=== PATIENT | female | born 1935 | race Caucasian/White ===

== ENCOUNTER → 2016-07-11 | Outpatient (CLI) | payer OTHER ==
[~2016-07-11] MED LIST: ASCO500T16 PO; ASPI81TA28 PO; LYSI500C2 PO; MULTTAB PO; VITA100C2 PO; [UNRECOGNIZED DRUG - OTHER] PO
--- NOTE | 2016-07-11 17:12 | MAMMOGRAPHY REPORT ---
BILATERAL DIGITAL SCREENING MAMMOGRAM WITH CAD: 07/11/2016 CLINICAL HISTORY: Routine screening. Patient has no complaints. TECHNIQUE: Bilateral CC and MLO views were obtained. Current study was also evaluated with a Comput er Aided Detection (CAD) system. COMPARISON: Comparison is made to exams dated: 07/08/2015 mammogram, 07/06/2013 mammogram, 07/07/2014 steff mogram, 07/09/2013 mammogram, 06/23/2012 ultrasound biopsy, and 05/29/2010 ultrasound - [facility]. BREAST COMPOSITION: There are scattered areas of fibroglandular density in both breasts. FINDINGS: There is a stable ribbon shaped metallic biopsy marker in the lower inner anterior right b reast. No suspicious mass, architectural distortion or cluster of microcalcifications is seen. IMPRESSION: ACR BI-RADS CATEGORY 1: NEGATIVE There is no mammographic evidence of malignancy. A 1 year screening mammogram is recommended. The p atient will receive written notification of the results. Approximately 10% of breast cancers are not detected with mammography. A negative mammographic repor t should not delay biopsy if a clinically suggestive mass is present. Angela Gunn M.D. ay/:07/11/2016 16:43:27 Client Server Programmer: Eusebio ALMONTE(Thang)(Dawna), [facility] letter sent: Normal 1/2 BI-RADS Code: ACR BI-RADS Category 1: Negative
== END | disposition home or self-care (01) ==
LOC: C.MAMM 15:46
PROVIDERS: ATTEND Obstetrics & Gynecology
DX: Z12.31 Encounter for screening mammogram for malignant neoplasm of breast (principal)

== ENCOUNTER → 2017-08-22 | Outpatient (CLI) | payer OTHER ==
--- NOTE | 2017-08-26 12:42 | MAMMOGRAPHY REPORT ---
BILATERAL DIGITAL SCREENING MAMMOGRAM TOMOSYNTHESIS WITH CAD: 08/22/2017 TECHNIQUE: Breast tomosynthesis in addition to standard 2D mammography was performed. Current study was also evaluated with a Computer Aided Detection (CAD) system. COMPARISON: Comparison is made to exams dated: 07/11/2016 mammogram, 07/08/2015 mammogram, 07/07/2014 mamm ogram, 07/09/2013 mammogram, 07/06/2013 mammogram, and 06/23/2012 ultrasound biopsy - [facility]. BREAST COMPOSITION: There are scattered areas of fibroglandular density in both breasts. FINDINGS: No suspicious masses, calcifications, or areas of architectural distortion are noted in ei ther breast. There has been no significant interval change compared to prior exams. A biopsy clip is again noted within the right lower inner quadrant. Asymmetry within the right superior breast on th e MLO view is stable compared to multiple prior exams including the 2007 exam. IMPRESSION: ACR BI-RADS CATEGORY 2: BENIGN There is no mammographic evidence of malignancy. A 1 year screening mammogram is recommended. The pa tient will receive written notification of the results. Approximately 10% of breast cancers are not detected with mammography. A negative mammographic report should not delay biopsy if a clinically suggestive mass is present. Rose Mary Espinal M.D. /:08/22/2017 16:12:52 Clinical Neuropsychologist: Michelle ALMONTE(Thang)(Dawna), [facility] letter sent: Normal 1/2 BI-RADS Code: ACR BI-RADS Category 2: Benign
== END | disposition home or self-care (01) ==
LOC: C.MAMM 15:54
PROVIDERS: ATTEND Obstetrics & Gynecology
DX: Z12.31 Encounter for screening mammogram for malignant neoplasm of breast (principal)

== ENCOUNTER 2018-01-12 23:55 | Emergency (ER) | payer OTHER ==
[2018-01-13 00:05] VITALS: Ht 152.4 cm
[2018-01-13] MEDS ORDERED: FENTANYL CITRATE INJ 50 MCG/1 ML 2 ML VIAL IV STA (00:19)
[2018-01-13] MEDS ORDERED: ONDANSETRON INJ 2 MG/ML 2 ML VIAL IV STA (00:19)
--- NOTE | 2018-01-13 00:23 | EMERGENCY ROOM VISIT NOTE ---
History Report prepared by Tahmina: Jean Pope Under the Supervision of: Dr. Sammy Ennis M.D. First contact with patient: 00:11 Chief Complaint: HEAD INJURY (MINOR) Stated Complaint: HURT HEAD,BLEEDING,SHAKEY,FALL? History of Present Illness The patient is a 82 year old female who presents to the Emergency Room with complaints of a constant head laceration in her posterior scalp area that began 45 minutes ago. Patient states she does not remember what happened. She states she went to bed an hour and a half ago "feeling fine" and woke up with the back of her head bleeding. She states she has a headache, nausea, and shaking. Patient also has a left knee abrasion. Patient adds she takes a baby aspirin daily. She denies drinking, smoking, and any past medical history. Patient adds that she is still employed. Patient denies chest pain, neck pain, knee pain, abdominal pain, hip pain, back pain, SOB, and urinary/bowel symptoms. Source of History: patient, family (Daughter) Onset: 45 minutes ago Position: head Quality: other (Laceration) Timing: constant Modifying Factors (Relieving): other (None) Associated Symptoms: + LOC, + headache, + nausea, No neck pain, No chest pain, No SOB, No abdominal pain, No back pain, No urinary symptoms Note: Positive shaking. Review of Systems See HPI for pertinent positives & negatives. A total of 10 systems reviewed and were otherwise negative. Past Medical & Surgical Surgical Problems: (1) Hx of cataract removal with insertion of prosthetic lens Family History Omitted secondary to age. Social History Smoking Status: Never Smoker Housing Status: lives with family Occupation Status: employed Current/Historical Medications Scheduled Aspirin (Aspirin Ec), 81 MG PO DAILY Fish Oil ([place]-3), 1 CAP PO DAILY Multivitamins/Minerals (Mvi With Minerals), 1 TAB PO DAILY [Calcitrate Plus D], 1 TABLET PO DAILY Allergies Coded Allergies: Nitrofurantoin (Verified Allergy, Mild, nausea, 01/13/18) Sulfa Drugs (Verified Allergy, Unknown, UPSET STOMACH, 01/13/18) Physical Exam Vital Signs Date Time Temp Pulse Resp B/P (MAP) Pulse Ox O2 Delivery O2 Flow Rate FiO2 01/13/18 02:16 36.5 58 14 133/73 94 01/13/18 00:49 58 14 133/73 94 Room Air 01/13/18 00:05 36.5 61 16 168/82 97 Room Air Physical Exam GENERAL: Patient is uncomfortable appearing and in mild distress. HEAD: 2cm laceration with large hematoma over the posterior scalp. EYES: No scleral icterus, unremarkable pupils. ENT: Mucous membranes moist, no nasal congestion. NECK: No masses appreciated, no meningismus, trachea is midline. RESPIRATORY: No dyspnea. Clear to auscultation and equal bilaterally. No wheeze , no rhonchi. CARDIOVASCULAR: Regular rate and rhythm. No murmurs, rubs, gallops appreciated. GASTROINTESTINAL: Abdomen soft, nontender, no peritonitis. Bowel sounds positive. No masses appreciated. BACK: No midline tenderness, no CVA tenderness EXTREMITIES: Normal motion all extremities, no cyanosis, no edema. NEUROLOGIC: Alert and oriented, no acute motor or sensory deficits, no focal weakness, cranial nerves grossly intact. SKIN: No rash, no jaundice, no diaphoresis. Medical Decision & Procedures ER Provider Diagnostic Interpretation: X ray results are stated below per my interpretation: Chest: 1 view: No infiltrate, no effusion, normal cardiac border. Stat Rad Radiology results and stated below per my review and radiologist interpretation: CT HEAD: No acute hemorrhage, hydrocephalus, or mass effect. Chronic microvascular ischemic changes with cerebral volume loss. No acute fracture. Right parietal scalp laceration. Radiologist: Cherie Rucker MD CT C SPINE: FINDINGS: No fracture or subluxations are noted. The vertebral body heights and alignment are preserved. No prevertebral soft tissue swelling. Note is made of multilevel cervical spondylosis with varying degrees of central canal and foramina stenoses. IMPRESSION: 1. No cervical fractures. 2. Cervical spondylosis with varying degrees of central canal and foramina stenoses. Radiologist: Tommy Malik MD Laboratory Results 01/13/18 00:40 Red Blood Count 4.32, Mean Corpuscular Volume 98.4, Mean Corpuscular Hemoglobin 33.8, Mean Corpuscular Hemoglobin Concent 34.4, Mean Platelet Volume 9.8, Neutrophils (%) (Auto) 68.4, Lymphocytes (%) (Auto) 25.2, Monocytes (%) (Auto) 4.6, Eosinophils (%) (Auto) 1.2, Basophils (%) (Auto) 0.2, Neutrophils # (Auto) 5.51, Lymphocytes # (Auto) 2.03, Monocytes # (Auto) 0.37, Eosinophils # (Auto) 0.10, Basophils # (Auto) 0.02 01/13/18 00:40 Test 01/13/18 00:40 01/13/18 01:53 White Blood Count 8.06 K/uL (4.8-10.8) Red Blood Count 4.32 M/uL (4.2-5.4) Hemoglobin 14.6 g/dL (12.0-16.0) Hematocrit 42.5 % (37-47) Mean Corpuscular Volume 98.4 fL (80-100) Mean Corpuscular Hemoglobin 33.8 pg (25-34) Mean Corpuscular Hemoglobin Concent 34.4 g/dl (32-36) Platelet Count 188 K/uL (130-400) Mean Platelet Volume 9.8 fL (7.4-10.4) Neutrophils (%) (Auto) 68.4 % Lymphocytes (%) (Auto) 25.2 % Monocytes (%) (Auto) 4.6 % Eosinophils (%) (Auto) 1.2 % Basophils (%) (Auto) 0.2 % Neutrophils # (Auto) 5.51 K/uL (1.4-6.5) Lymphocytes # (Auto) 2.03 K/uL (1.2-3.4) Monocytes # (Auto) 0.37 K/uL (0.11-0.59) Eosinophils # (Auto) 0.10 K/uL (0-0.5) Basophils # (Auto) 0.02 K/uL (0-0.2) RDW Standard Deviation 44.9 fL (36.4-46.3) RDW Coefficient of Variation 12.3 % (11.5-14.5) Immature Granulocyte % (Auto) 0.4 % Immature Granulocyte # (Auto) 0.03 K/uL (0.00-0.02) Anion Gap 10.0 mmol/L (3-11) Estimated GFR () 94.2 Estimated GFR (Non- 81.3 BUN/Creatinine Ratio 18.3 (10-20) Calcium Level 8.3 mg/dl (8.5-10.1) Total Bilirubin 0.4 mg/dl (0.2-1) Aspartate Amino Transf (AST/SGOT) 19 U/L (15-37) Alanine Aminotransferase (ALT/SGPT) 28 U/L (12-78) Alkaline Phosphatase 89 U/L (45-117) Total Creatine Kinase 105 U/L (26-192) Troponin I < 0.015 ng/ml (0-0.045) Total Protein 7.1 gm/dl (6.4-8.2) Albumin 3.8 gm/dl (3.4-5.0) Globulin 3.3 gm/dl (2.5-4.0) Albumin/Globulin Ratio 1.2 (0.9-2) Bedside Troponin I < 0.030 ng/ml (0-0.045) Laboratory results as reviewed by me. Medications Administered Medications (Trade) Dose Ordered Sig/Orlin Route Start Time Stop Time Status Last Admin Dose Admin Fentanyl Citrate (Fentanyl Inj) 50 mcg NOW STAT IV 01/13/18 00:19 01/13/18 00:20 DC 01/13/18 00:45 50 MCG Ondansetron HCl (Zofran Inj) 4 mg NOW STAT IV 01/13/18 00:19 01/13/18 00:20 DC 01/13/18 00:45 4 MG Diphtheria/ Pertussis/Tetanus Vacc (Adacel Inj) 0.5 ml ONCE ONCE IM. 01/13/18 01:30 01/13/18 01:31 DC 01/13/18 01:29 0.5 ML Procedure Location: Posterior scalp Total length: 2cm Complexity: Simple Verbal consent was obtained after the risks and benefits were explained, including but not limited to bleeding, scarring, infection, pain, and bone/joint /nerve damage. At this time, the risks of the procedure are less than the risks of NOT performing the procedure. A time out was taken and the correct patient and site identified. The skin was prepped with betadine. The target area was anesthetized with 0 ml of 1% lidocaine without epinephrine. Copious irrigation was performed using saline and Betadine. The skin was re-prepped with betadine and a sterile field set. The wound was explored for foreign bodies and none found. Examination revealed no injury to deep structures such as tendons, bone, or significant blood vessels. Debridement was not performed. The wound edges were approximated using 4 galilea. Hemostasis and excellent approximation was achieved. Antibacterial ointment and a sterile dressing applied. Detailed wound care instructions and signs and symptoms of infection reviewed with the her. No complications and the patient tolerated the procedure well. ECG Per My Interpretation Indication: syncope Rate (beats per minute): 60 Rhythm: normal sinus Findings: no acute ischemic change, no ectopy, other (Lateral T-wave abnormalities) Comparison ECG Date: no prior available ED Course 0010: The patient was evaluated in room A2. A complete history and physical exam was performed. 0115: I reevaluated the patient. Patient states she has not had a tetanus shot in 10 years and is agreeable to getting one today. She adds her headache feels better. 0210: Reevaluated the patient. Discussed results and discharge instructions. She verbalized understanding and agreement. The patient is ready for discharge. Medical Decision Differential: MSK, Vaso-vagal, Intracerebral Event, Neurologic, Infectious, Volume Deficiency, Hypoglycemia, Electrolyte Abnormality, Cardiac Source, Toxicologic, amongst other pathologies entertained. 82 yr old female who awoke this evening with headache and noted injury to back of head. Unclear exactly what happened but she surmises she tripped when taking off pants and must have hit head on something before crawling in to bed. Unfortunately amnestic to what happened. Bruising to elbows and knees noted. Labs unremarkable. EKG with some likely chronic lateral T wave abnormalities. No cp, sob, nor other symptoms. CT head/neck negative for acute injury. CXR clear. Trop negative x 2. No symptoms nor evidence PE nor dissection. Suspect she hit head hard enough for significant concussion. She is well over several hours here. Lac repaired by me. She will have galilea out in 10-14 days. Post head injury instructions reviewed at length. Stressed PCP follow up. Reviewed symptoms requiring RTED. She and family comfortable with discharge and she will be checked in on at home. Head Trauma GCS Score: 15 Medication Reconcilliation Current Medication List: was personally reviewed by me Blood Pressure Screening Patient's blood pressure: Elevated blood pressure Blood pressure disposition: Elevated BP felt to be situational Impression Primary Impression: Concussion Additional Impressions: Closed head injury Scalp laceration Amnesia Xunwrnmmpe-rwdpeuq-guyveoblq (DTP) vaccination Cervical spondylosis Scribe Attestation The scribe's documentation has been prepared under my direction and personally reviewed by me in its entirety. I confirm that the note above accurately reflects all work, treatment, procedures, and medical decision making performed by me. Departure Information Dispostion Home / Self-Care Referrals Gurvinder Patel M.D. (PCP) Patient Instructions My [facility] Additional Instructions Rest and keep well hydrated over next few days. Use Tylenol as needed for headaches. Head injuries may cause delayed headaches, sleep problems, nausea and fatigue. Keep wound clean. You may shower and use shampoo. Call 911 or Return Immediately if worsening headache, fevers, swelling, vision changes, weakness, chest pain, shortness of breath or other concerning symptoms. You must follow up with your primary provider in the next few days for recheck. We are always here to help! Problem Qualifiers
[2018-01-13 00:50] LABS: BASO % 0.2 %; BASO ABS # 0.02 K/uL (0-0.2); EOS % 1.2 %; HEMATOCRIT 42.5 % (37-47); HEMOGLOBIN 14.6 g/dL (12.0-16.0); IG# 0.03 K/uL (0.00-0.02); LYMPH % 25.2 %; LYMPH ABS # 2.03 K/uL (1.2-3.4); MEAN CELL VOLUME 98.4 fL (80-100); MEAN CORPUSCULAR HEMOGLOBIN 33.8 pg (25-34); MEAN CORPUSCULAR HGB CONC 34.4 g/dl (32-36); MEAN PLATELET VOLUME 9.8 fL (7.4-10.4); MONO % 4.6 %; MONO ABS # 0.37 K/uL (0.11-0.59); NEUT % 68.4 %; NEUT ABS # 5.51 K/uL (1.4-6.5); PLATELET COUNT 188 K/uL (130-400); RED CELL DISTRIBUTION WIDTH CV 12.3 % (11.5-14.5); RED CELL DISTRIBUTION WIDTH SD 44.9 fL (36.4-46.3); WHITE BLOOD COUNT 8.06 K/uL (4.8-10.8)
[2018-01-13 01:17] LABS: ALBUMIN 3.8 gm/dl (3.4-5.0); ALKALINE PHOSPHATASE 89 U/L (45-117); ALT/SGPT 28 U/L (12-78); AST/SGOT 19 U/L (15-37); BLOOD UREA NITROGEN 13 mg/dl (7-18); CALCIUM 8.3 mg/dl (8.5-10.1); CARBON DIOXIDE 24 mmol/L (21-32); GLUCOSE 98 mg/dl (70-99); POTASSIUM 3.8 mmol/L (3.5-5.1); SODIUM 138 mmol/L (136-145); TOTAL PROTEIN 7.1 gm/dl (6.4-8.2)
[2018-01-13] MEDS ORDERED: DIPHTHERIA/TETANUS/PERTUSSIS 0.5 ML SYR/VIAL IM. ONE (01:30)
[2018-01-13] MEDS ORDERED: OMEG10007 PO (01:51)
[2018-01-13 02:16] VITALS: BP 133/73; PULSE 58; TEMP 36.5; O2SAT 94
--- NOTE | 2018-01-13 07:35 | DIAGNOSTIC IMAGING REPORT ---
CHEST ONE VIEW PORTABLE CLINICAL HISTORY: 82 years-old Female presenting with Syncope. TECHNIQUE: Portable upright AP view of the chest was obtained. COMPARISON: None. FINDINGS: Atherosclerosis of the aortic arch. Cardiac silhouette enlarged. No focal opacity. No large effusion or pneumothorax. Dextroscoliotic curvature of the thoracic spine. Upper abdomen normal. IMPRESSION: 1. No acute cardiopulmonary disease. Electronically signed by: Iban Morton M.D. 01/13/2018 7:33 AM Dictated Date/Time: 01/13/2018 6:55 AM
--- NOTE | 2018-01-13 07:41 | DIAGNOSTIC IMAGING REPORT ---
CT SCAN OF THE BRAIN WITHOUT IV CONTRAST CLINICAL HISTORY: Head injury. COMPARISON STUDY: No priors. TECHNIQUE: Unenhanced axial CT scan of the brain is performed from the vertex to the skull base. A dose lowering technique was utilized adhering to the principles of ALARA. FINDINGS: Brain parenchyma: There are age-related involutional changes noting mild subcortical and periventricular microangiopathic change. There is no hemorrhage, mass effect, or evidence of acute territorial ischemia by CT criteria. Davison-white matter is preserved. No extra-axial fluid collection is seen. Ventricles, sulci, cisterns: Prominent secondary to involutional change. Intracranial vasculature: There is atherosclerotic calcification of the cavernous carotid arteries. Calvarium: The skeletal structures are osteopenic. No depressed calvarial fracture is seen. Soft tissues: There is a right posterior frontal scalp hematoma. Sinuses and mastoids: The visualized paranasal sinuses are clear. The mastoid air cells are well pneumatized. Orbits: The bony orbits are grossly intact. IMPRESSION: 1. There is no hemorrhage, mass effect, or evidence of acute territorial ischemia by CT criteria. 2. Posterior scalp hematoma. No depressed calvarial fracture is seen. Electronically signed by: Kimani Cohen M.D. 01/13/2018 7:39 AM Dictated Date/Time: 01/13/2018 7:05 AM
--- NOTE | 2018-01-13 07:45 | DIAGNOSTIC IMAGING REPORT ---
CT SCAN OF THE CERVICAL SPINE CLINICAL HISTORY: Fall. COMPARISON STUDY: No priors. TECHNIQUE: CT scan of the cervical spine is performed from the skull base to the upper thoracic spine. Images are reviewed in the axial, sagittal, and coronal planes. IV contrast was not administered for this examination. A dose lowering technique was utilized adhering to the principles of ALARA. CT DOSE: 924.74 mGy.cm FINDINGS: Skeletal structures: The skeletal structures are osteopenic. There is no evidence of fracture or subluxation involving the cervical spine. Vertebral body height is maintained. There is minimal anterolisthesis at C3-C4. Alignment is otherwise preserved. There is straightening of the cervical lordosis with mild reversal centered at C4-C5. Small anterior osteophytes are seen in the mid to lower cervical spine. The odontoid process and lateral masses are intact. The atlantoaxial articulation is preserved noting productive degenerative change. The spinous processes appear intact. There is moderate to advanced multilevel cervical spondylosis. Uncovertebral and facet arthropathy contribute to neural foraminal stenosis at most levels. Intervertebral discs: Moderate disc space narrowing is seen at all levels between C4-C5 and C6-C7. Central canal: Small posterior disc osteophyte complexes at C4-C5, C5-C6, and C6-C7 likely contribute to mild acquired compromise of the central canal. Soft tissues: The prevertebral and paraspinous soft tissues are within normal limits. A 9 mm low-attenuation nodule is noted in the left thyroid lobe. Calvarium: The visualized calvarium at the skull base appears intact. Brain parenchyma: Partially visualized brain parenchyma the skull base is within normal limits noting age-related involutional change. Sinuses and mastoids: The visualized paranasal sinuses are clear. The mastoid air cells are well pneumatized. Lung apices: Clear as visualized. IMPRESSION: 1. There is no evidence of fracture or subluxation involving the cervical spine. 2. Osteopenia and spondylotic change as above. Electronically signed by: Kimani Cohen M.D. 01/13/2018 7:43 AM Dictated Date/Time: 01/13/2018 7:08 AM
== END 2018-01-13 02:17 | disposition home or self-care (01) ==
LOC: C.EDB 23:56 → C.EDA 01-13 02:17
DX: S06.0X9A Concussion with loss of consciousness of unspecified duration, initial encounter (principal); S01.01XA Laceration without foreign body of scalp, initial encounter; R40.2412 Glasgow coma scale score 13-15, at arrival to emergency department; R41.3 Other amnesia; S50.01XA Contusion of right elbow, initial encounter; S50.02XA Contusion of left elbow, initial encounter; S80.01XA Contusion of right knee, initial encounter; S80.02XA Contusion of left knee, initial encounter; X58.XXXA Exposure to other specified factors, initial encounter; Z23 Encounter for immunization; M43.02 Spondylolysis, cervical region; Z79.82 Long term (current) use of aspirin; Z88.1 Allergy status to other antibiotic agents; Z88.2 Allergy status to sulfonamides

== ENCOUNTER 2018-01-23 12:46 | Emergency (ER) | payer OTHER ==
[~2018-01-23] VITALS: Ht 152.4 cm; Wt 50.0 kg
[~2018-01-23 12:46] MED LIST changes: -ASCO500T16 PO; -LYSI500C2 PO; +OMEG10007 PO; -VITA100C2 PO
--- NOTE | 2018-01-23 13:13 | EMERGENCY ROOM VISIT NOTE ---
ED Visit Note First contact with patient: 13:05 CHIEF COMPLAINT: Suture removal This patient returns to the ED today for removal of sutures that were placed scalp 11 days ago. There has been no swelling, redness, or drainage from the wound. The patient feels like the laceration is healing well. REVIEW OF SYSTEMS: Head: No headache, injury or neck pain. Skin: No rash, new lesions, or masses. General: No fever or chills, fatigue, loss of appetite , or significant recent weight gain or loss. PMH: The patient is healthy; there is no significant medical or surgical history. SOCIAL HISTORY: Patient lives at home. PHYSICAL EXAM: Vital Signs: Reviewed Nurse's notes. There is a sutured wound on the scalp with no signs of infection. There is no erythema, swelling, or tenderness. EMERGENCY DEPARTMENT COURSE: The sutures were removed without any difficulty and there was no separation of the wound edges. Problem List Surgical Problems: (1) Hx of cataract removal with insertion of prosthetic lens Status: Resolved Current/Historical Medications Scheduled Aspirin (Aspirin Ec), 81 MG PO DAILY Fish Oil ([place]-3), 1 CAP PO DAILY Multivitamins/Minerals (Mvi With Minerals), 1 TAB PO DAILY [Calcitrate Plus D], 1 TABLET PO DAILY Allergies Coded Allergies: Nitrofurantoin (Verified Allergy, Mild, nausea, 01/13/18) Sulfa Drugs (Verified Allergy, Unknown, UPSET STOMACH, 01/13/18) Vital Signs Date Time Temp Pulse Resp B/P (MAP) Pulse Ox O2 Delivery O2 Flow Rate FiO2 01/23/18 13:18 36.0 71 16 153/85 97 Room Air 01/23/18 13:18 36.0 51 18 97 Departure Information Impression Primary Impression: Encounter for removal of galilea Dispostion Home / Self-Care Condition GOOD Referrals Gurvinder Patel M.D. (PCP) Patient Instructions My [facility] Additional Instructions DISCHARGE INSTRUCTIONS AND TREATMENT: Wash any remaining crusts off of the wound today and resume your normal activities.
[2018-01-23 13:18] VITALS: BP 153/85; PULSE 71; TEMP 36; O2SAT 97; Ht 152.4 cm; Wt 50.0 kg
== END 2018-01-23 13:19 | disposition home or self-care (01) ==
LOC: C.EDB 12:48 → C.EDD 13:19
DX: S01.01XD Laceration without foreign body of scalp, subsequent encounter (principal); X58.XXXD Exposure to other specified factors, subsequent encounter; Z79.82 Long term (current) use of aspirin; Z88.8 Allergy status to other drugs, medicaments and biological substances; Z88.2 Allergy status to sulfonamides